=== PATIENT | male | born 1990 ===

== ENCOUNTER 2019-01-07 13:35 | Emergency (ER) | payer SELFPAY ==
[2019-01-07 14:05] LABS: #Eosinphils 0.2 thou/uL (0.0-0.7); #Lymphocytes 1.3 thou/uL (1.20-3.40); #Monocytes 0.7 thou/uL (0.11-0.59); #Neutrophils 11.2 thou/uL (1.40-6.50); %Basophils 0.1 % (0.0-1.0); %Eosinophils 1.1 % (0.0-10.0); %Lymphocytes 9.9 % (28.0-48.0); %Neutrophils 83.9 % (31.0-61.0); Hemoglobin 14.4 g/dL (14.0-18.0); Mean Corpuscular Hemoglobin 31.8 pg (25.0-35.0); Mean Corpuscular Volume 93.7 fL (78.0-98.0); Mean Platelet Volume 6.9 fL (7.4-10.4); Platelet Count 250 thou/uL (130-400); RBC Distribution Width 12.2 % (11.5-14.5); Red Blood Cell (RBC) Count 4.51 mill/uL (4.00-5.20); White Blood Cell (WBC) Count 13.4 thou/uL (4.8-10.8)
[2019-01-07] MEDS ORDERED: Lorazepam 2 MG/ML VIAL ONE (14:05)
[2019-01-07 14:35] LABS: ALT (SGPT) 43 U/L (8-55); AST (SGOT) 23 U/L (5-34); Acetaminophen Less than 6.0 mcg/mL (10.0-30.0); Albumin 3.6 g/dL (3.5-5.0); Alcohol 180 mg/dL (Less than 10); Alkaline Phosphatase 155 U/L (Less than 750); Anion Gap 19 mmol/L (10-20); BUN (Urea Nitrogen) Less than 4 mg/dL (8.9-20.6); Bilirubin, Total 0.9 mg/dL (0.2-1.2); Calc. Creatinine Clearance 0 mL/min (70-130); Calcium 8.7 mg/dL (7.8-10.44); Carbon Dioxide 20 mmol/L (22-29); Chloride 112 mmol/L (98-107); Estimated GFR-MDRD Greater than 90; Globulin 3.1 g/dL (2.4-3.5); Glucose 105 mg/dL (70-105); Protein, Total 6.7 g/dL (6.0-8.3); Salicylate Less than 8.0 mg/dL (15.0-30.0); Sodium 147 mmol/L (136-145)
[2019-01-07 14:54] LABS: Bilirubin Negative (Negative); Blood, Urine Negative (Negative); Clarity CLEAR (Clear); Glucose, Urine (Dipstick) Negative (Negative); Leukocyte Trace (Negative); Nitrite Negative (Negative); Protein, Urine (Dipstick) Negative (Neg-Trace); Specific Gravity, Urine 1.002 (1.002-1.036); Urobilinogen 0.2 mg/dL (0.2-1.0)
[2019-01-07 14:56] LABS: Bacteria/HPF None Seen HPF (None Seen); Hyaline Casts/LPF 4-6 HYALINE CAST LPF (0-3 Hyaline); Pathc Cast-AUWi Flag 0.87 (0-2.49); RBC/HPF None Seen HPF (0-3); Squamous Epithelial 0-3 HPF (0-3); WBC/HPF 0-3 HPF (0-3)
[2019-01-07 15:07] LABS: Benzodiazepine Screen Detected (NotDetected); Medtox Reader # READER 1; THC/Cannabinoid Screen Not Detected (NotDetected)
[2019-01-07 15:08] LABS: Amphetamine Not Detected (NotDetected); Barbiturates Screen Not Detected (NotDetected); Cocaine Metabolite Screen Not Detected (NotDetected); Medtox Control Line Valid? VALID (VALID); Methadone Not Detected (NotDetected); Methamphetamine Not Detected (NotDetected); Opiate Screen Not Detected (NotDetected); Oxycodone Screen Not Detected (NotDetected); Phencyclidine (PCP) Not Detected (NotDetected); Tricyclic Screen Not Detected (NotDetected)
== END 2019-01-07 16:42 ==
LOC: EDBD 13:35 → ERS 13:35
DX: F10.129 Alcohol abuse with intoxication, unspecified (principal); F19.10 Other psychoactive substance abuse, uncomplicated; R45.1 Restlessness and agitation; F41.9 Anxiety disorder, unspecified; F20.9 Schizophrenia, unspecified
CPT/HCPCS: 80053; 80306; 80307; 81003; 81015; 84146; 85025; 93005; 96361; 96374; J2060

== ENCOUNTER 2019-01-07 17:38 | Emergency (ER) | payer SELFPAY ==
--- NOTE | 2019-01-07 19:09 | CT ---
CT BRAIN WITHOUT CONTRAST: History: Altered mental status. Comparison: None. FINDINGS: There is a subcutaneous nodule of the left parietal scalp near the vertex. No acute intracranial infa rct of hemorrhage. No midline shift or mass effect. Ventricular size and extraaxial CSF spaces are normal. IMPRESSION: 1. No acute intracranial abnormality. 2. 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 POS: [facility]
[2019-01-07] MEDS ORDERED: Lorazepam 1 MG TAB ONE (19:12)
== END 2019-01-07 19:20 ==
LOC: ERS 17:38
DX: F10.10 Alcohol abuse, uncomplicated (principal); R56.9 Unspecified convulsions; F41.9 Anxiety disorder, unspecified; F20.9 Schizophrenia, unspecified; Z79.899 Other long term (current) drug therapy
CPT/HCPCS: 70450